=== PATIENT | male | born 1930 | race Caucasian/White ===

== ENCOUNTER 2017-08-21 13:17 | Day surgery (SDC) | payer OTHER ==
--- NOTE | 2017-08-21 14:04 | DR.UPDATE ---
H&P Update History and Physical Update: History and Physical reviewed and patient examined. Changes noted: NO Yes with the following:Agree with H&P from Dr Recio. Will proceed with L5-S1 re right
[2017-08-21] MEDS ORDERED: XYLOCAINE 1 % (PLAIN) ONE ×2 (14:07→14:09)
[2017-08-21] MEDS: MARCAINE 0.25% INJ ONE ×2 (14:12→14:16)
[2017-08-21] MEDS: KENALOG INJ 40 MG IM ONE ×2 (14:12→14:16)
[2017-08-21 14:41] VITALS: BP 153/84
== END 2017-08-21 14:35 | disposition home or self-care (01) | DRG 552 ==
LOC: SURG1 13:17
PROVIDERS: ATTEND Orthopaedic Surgery
PROC: 3E0R33Z Introduction of Anti-inflammatory into Spinal Canal, Percutaneous Approach (ICD-10-PCS; principal; 2017-08-21 14:15)
PROC: 3E0R3BZ Introduction of Anesthetic Agent into Spinal Canal, Percutaneous Approach (ICD-10-PCS; principal; 2017-08-21 14:15)
DX: M51.37 Other intervertebral disc degeneration, lumbosacral region (principal)
CPT/HCPCS: 62323; 76000; A4222; S0020; J2001; J3301